=== PATIENT | male | born 1935 | race Caucasian/White ===

== ENCOUNTER 2016-08-07 15:40 | Emergency (ER) | payer OTHER, BC ==
[~2016-08-07] VITALS: Ht 175.3 cm; Wt 70.4 kg
[~2016-08-07 15:40] MED LIST: ATORVASTATIN CA40 MG PO; CARTIA XT120 MG PO; LITE COAT ASPI325 M1 PO; LOSARTAN POTAS100 MG PO; QVAR 80 MCG IN7.3 GM IH; TAMBOCOR50 MG PO
[2016-08-07] MEDS ORDERED: KEFLEX500 MG PO (18:43)
[2016-08-07] MEDS ORDERED: ULTRACET1 TABLET PO (18:43)
[2016-08-07 19:09] VITALS: BP 169/75
== END 2016-08-07 19:09 | disposition home or self-care (01) ==
LOC: EME 15:40
DX: S81.812A Laceration without foreign body, left lower leg, initial encounter (principal); S80.01XA Contusion of right knee, initial encounter; W18.40XA Slipping, tripping and stumbling without falling, unspecified, initial encounter; I10 Essential (primary) hypertension; Z88.2 Allergy status to sulfonamides
CPT/HCPCS: 73564; 99281; 99283